=== PATIENT | female | born 1990 | race Caucasian/White ===

== ENCOUNTER 2018-05-25 01:29 | Observation (INO) | payer MEDICAID ==
[~2018-05-25] VITALS: Ht 149.9 cm; Wt 80.7 kg
[2018-05-25 02:40] LABS: CLARITY URINE CLOUDY (CLEAR); COLOR URINE YELLOW (YELLOW); KETONES URINE NEGATIVE (NEGATIVE); LEUKOCYTE ESTERASE URINE 3+ (NEGATIVE); NITRITE URINE NEGATIVE (NEGATIVE); OCCULT BLOOD URINE NEGATIVE (NEGATIVE); PH URINE 6.5 (4.5-8.0); PROTEIN URINE NEGATIVE (NEGATIVE); SPECIFIC GRAVITY URINE 1.008 (1.005-1.030); UROBILINOGEN URINE 0.2 E.U./dL (0.2-1.0)
[2018-05-25 02:51] LABS: *BARBITURATES SCREEN URINE NEGATIVE (NEGATIVE); *BENZODIAZEPINES SCREEN URINE NEGATIVE (NEGATIVE)
[2018-05-25 02:52] LABS: *COCAINE SCREEN URINE NEGATIVE (NEGATIVE); CANNABINOID URINE SCREEN NEGATIVE (NEGATIVE); METHADONE URINE SCREEN NEGATIVE (NEGATIVE); OPIATES URINE SCREEN NEGATIVE (NEGATIVE); PHENCYCLIDINE URINE SCREEN NEGATIVE (NEGATIVE)
[2018-05-25 03:06] LABS: *AMPHETAMINES SCREEN URINE PRESUMTIVE POSITIVE (NEGATIVE)
[2018-05-25] MEDS ORDERED: CEFAZOLIN SODIUM 1000MG/VIAL IV ONE (03:30)
[2018-05-25] MEDS ORDERED: CEFAZOLIN 2000MG in DEXTROSE 5% WATER 100ML IV NR (04:00)
[2018-05-25] MEDS ORDERED: LACTATED RINGERS 1,000 ML IV SCH (04:00)
[2018-05-25] MEDS ORDERED: ABIL5 PO (04:50)
[2018-05-25] MEDS ORDERED: PNV1TABL50 PO (04:50)
[2018-05-29 06:07] LABS: AMPHETAMINE CONF URINE Positive (.)
== END 2018-05-25 05:15 | disposition home or self-care (01) ==
LOC: 8 EST LDRP 01:29
PROVIDERS: ADMIT Obstetrics & Gynecology; ATTEND Obstetrics & Gynecology
DX: O26.893 Other specified pregnancy related conditions, third trimester (principal); R10.30 Lower abdominal pain, unspecified; O42.92 Full-term premature rupture of membranes, unspecified as to length of time between rupture and onset of labor; M54.9 Dorsalgia, unspecified; F20.9 Schizophrenia, unspecified; Z3A.39 39 weeks gestation of pregnancy
CPT/HCPCS: 80305; 80307; 81003; 87077; 87086; 96365; 99281; G0378; J0690; J7060; 96360